=== PATIENT | male | born 1975 | race African-American/Black ===

== ENCOUNTER 2017-03-06 11:49 | Emergency (ER) | payer OTHER ==
[~2017-03-06] VITALS: Ht 185.4 cm; Wt 91.8 kg
[~2017-03-06 11:49] MED LIST: NOCURR
[2017-03-06] MEDS ORDERED: IBUPROFEN 600 MG TABLET PO ONE (12:15)
[2017-03-06] MEDS ORDERED: PERTUSS(ACELL),DIPH,TET VAC/PF 0.5 ML VIAL IM ONE (12:15)
[2017-03-06 13:01] VITALS: BP 142/87
== END 2017-03-06 13:10 | disposition home or self-care (01) ==
LOC: EMS 11:52
DX: S01.511A Laceration without foreign body of lip, initial encounter (principal); F12.90 Cannabis use, unspecified, uncomplicated; F17.210 Nicotine dependence, cigarettes, uncomplicated; K08.89 Other specified disorders of teeth and supporting structures; V49.40XA Driver injured in collision with unspecified motor vehicles in traffic accident, initial encounter; Y93.89 Activity, other specified; Y92.89 Other specified places as the place of occurrence of the external cause; Y99.8 Other external cause status
CPT/HCPCS: 90471; 90715; 99283